=== PATIENT | female | born 1950 | race Caucasian/White ===

== ENCOUNTER 2020-03-04 19:01 | Emergency (ER) | payer MEDICARE, OTHER ==
[~2020-03-04 19:01] MED LIST: ALPRAZOLAM0.5 MG PO; CYCLOBENZAPRINE10 MG PO; DRAMAMINE LESS25 MG PO; HYDROCODON-ACE1 EAC6 PO; HYSINGLA ER20 MG PO; LEVOFLOXACIN250 MG PO; LIPITOR TAB 1010 MG PO; LOPRESSOR 25 MG25 MG PO; NABUMETONE500 MG PO; NEURONTIN600 MG PO; OMEPRAZOLE20 MG PO; PRINIVIL20 MG PO; PROZAC40 MG PO; SINGULAIR10 MG PO
[2020-03-04 20:57] LABS: HEMOGLOBIN 12.8 gm/dl (12.3-15.3); RED BLOOD COUNT 4.29 M/UL (4.00-5.10); WHITE BLOOD COUNT 9.5 K/UL (4.5-11.0)
[2020-03-04 21:15] LABS: BUN/CREATININE RATIO 17 (0-10)
[2020-03-04] MEDS ORDERED: TESSALON PERLE100 MG PO (22:51)
[2020-03-04] MEDS ORDERED: PROVENTIL HFA6.7 GM INH (22:51)
[2020-03-04] MEDS ORDERED: VIBRAMYCIN 100100 MG PO (22:51)
[2020-03-04] MEDS ORDERED: PREDNISONE 10 M10 MG PO (22:51)
== END 2020-03-04 23:24 | disposition home or self-care (01) ==
LOC: ER1 19:01
PROVIDERS: Physician Assistant
DX: J18.9 Pneumonia, unspecified organism (principal); J40 Bronchitis, not specified as acute or chronic; R09.02 Hypoxemia; I10 Essential (primary) hypertension; Z79.899 Other long term (current) drug therapy; Z88.5 Allergy status to narcotic agent; Z88.8 Allergy status to other drugs, medicaments and biological substances; Z88.0 Allergy status to penicillin; Z87.891 Personal history of nicotine dependence; Z20.822 Contact with and (suspected) exposure to COVID-19
CPT/HCPCS: 36600; 71045; 71250; 80053; 82550; 82553; 82803; 83874; 84484; 85025; 87040; 94664; 99285; J0171; J0461; U0002

== ENCOUNTER 2020-04-13 16:58 | Emergency (ER) | payer MEDICARE, OTHER ==
[~2020-04-13 16:58] MED LIST changes: +PREDNISONE 10 M10 MG PO; +PROVENTIL HFA6.7 GM INH; +TESSALON PERLE100 MG PO; +VIBRAMYCIN 100100 MG PO
[2020-04-13 18:53] LABS: HEMOGLOBIN 12.6 gm/dl (12.3-15.3); RED BLOOD COUNT 4.2 M/UL (4.00-5.10); WHITE BLOOD COUNT 10.7 K/UL (4.5-11.0)
[2020-04-13 19:16] LABS: BUN/CREATININE RATIO 14 (0-10)
[2020-04-13] MEDS ORDERED: TESSALON PERLE100 MG PO (20:22)
[2020-04-13] MEDS ORDERED: DOXYCYCLINE HY100 MG PO (20:22)
[2020-04-13] MEDS ORDERED: PREDNISONE20 MG PO (20:22)
[2020-09-11] MEDS ORDERED: ALBUTEROL INH (13:16)
== END 2020-04-13 20:50 | disposition home or self-care (01) ==
LOC: ER1 16:58
PROVIDERS: Family Medicine
DX: J20.9 Acute bronchitis, unspecified (principal); I10 Essential (primary) hypertension; Z20.822 Contact with and (suspected) exposure to COVID-19; E78.5 Hyperlipidemia, unspecified; Z88.5 Allergy status to narcotic agent; Z88.1 Allergy status to other antibiotic agents; Z88.8 Allergy status to other drugs, medicaments and biological substances
CPT/HCPCS: 0240U; 36415; 36600; 71045; 80053; 82550; 82553; 82803; 83605; 83874; 83880; 84484; 85025; 96374; 96375; 96376; 99285; J0360; J2930

== ENCOUNTER → 2020-05-18 | Outpatient (CLI) | payer MEDICARE, OTHER ==
[~2020-05-18] MED LIST changes: +ALBUTEROL INH; +AMLODIPINE BESYL5 MG PO; +CLON; +DOXYCYCLINE HY100 MG PO; +GABA; +KETAMINE; +PREDNISONE20 MG PO; +TRELEGY ELLIPT1 EAC1 INH
== END ==
LOC: HEART 5 10:03
DX: J44.9 Chronic obstructive pulmonary disease, unspecified (principal); J45.50 Severe persistent asthma, uncomplicated; Z87.891 Personal history of nicotine dependence
CPT/HCPCS: 94060; 94729; 95012

== ENCOUNTER → 2020-07-09 | Outpatient (CLI) | payer MEDICARE, OTHER | LOC: HEART 5 16:00 | DX: J45.50 Severe persistent asthma, uncomplicated (principal) | CPT/HCPCS: 94010 ==

== ENCOUNTER → 2020-09-07 | Outpatient (CLI) | payer MEDICARE, OTHER | LOC: KOH-I 14:25 | DX: M25.572 Pain in left ankle and joints of left foot (principal); M25.571 Pain in right ankle and joints of right foot; M19.071 Primary osteoarthritis, right ankle and foot | CPT/HCPCS: 73610 ==

== ENCOUNTER → 2020-09-11 | Outpatient (CLI) | payer MEDICARE, OTHER ==
[2020-09-11 12:27] LABS: HEMOGLOBIN 12.3 gm/dl (12.3-15.3); RED BLOOD COUNT 4.04 M/UL (4.00-5.10)
== END ==
LOC: OPSV2 10:49
PROVIDERS: Podiatrist Foot & Ankle Surgery
DX: Z01.818 Encounter for other preprocedural examination (principal); M19.011 Primary osteoarthritis, right shoulder
CPT/HCPCS: 36415; 80048; 85027; 93005

== ENCOUNTER → 2020-09-11 | Outpatient (CLI) | payer MEDICARE, OTHER | LOC: KOH-I 13:00 | DX: Z01.818 Encounter for other preprocedural examination (principal); Z00.00 Encounter for general adult medical examination without abnormal findings; M81.0 Age-related osteoporosis without current pathological fracture; M19.071 Primary osteoarthritis, right ankle and foot | CPT/HCPCS: 73700; 77080; 93926 ==

== ENCOUNTER → 2020-10-15 | Outpatient (CLI) | payer MEDICARE, OTHER | LOC: EXRD 08:30 | DX: Z78.0 Asymptomatic menopausal state (principal); M85.88 Other specified disorders of bone density and structure, other site | CPT/HCPCS: 77080 ==

== ENCOUNTER → 2020-11-06 | Outpatient (CLI) | payer MEDICARE, OTHER | LOC: ECHO 09:00 → NM 10:00 | DX: I20.8 Other forms of angina pectoris (principal); R94.31 Abnormal electrocardiogram [ECG] [EKG]; R06.02 Shortness of breath | CPT/HCPCS: ECHO; 78452; 93017; 93306; A9502; J2785 ==

== ENCOUNTER 2021-08-19 17:02 | Inpatient (IN) | payer MEDICARE, OTHER ==
[~2021-08-19] VITALS: Ht 152.4 cm; Wt 70.8 kg
[~2021-08-19 17:02] MED LIST changes: -LIPITOR TAB 1010 MG PO; +LIPITOR40 MG PO; -NABUMETONE500 MG PO; +NABUMETONE750 MG PO
[2021-08-19 17:56] LABS: HEMOGLOBIN 11.3 gm/dl (12.3-15.3); RED BLOOD COUNT 3.57 M/UL (4.00-5.10); WHITE BLOOD COUNT 23.2 K/UL (4.5-11.0)
[2021-08-19 18:24] LABS: BUN/CREATININE RATIO 27 (0-10)
[2021-08-20 03:27] LABS: BUN/CREATININE RATIO 26 (0-10)
[2021-08-20 03:56] LABS: HEMOGLOBIN 11.6 gm/dl (12.3-15.3); RED BLOOD COUNT 3.62 M/UL (4.00-5.10); WHITE BLOOD COUNT 21.7 K/UL (4.5-11.0)
[2021-08-20] MEDS ORDERED: HYDROCHLOROTH12.5 MG PO (12:54)
[2021-08-20] MEDS ORDERED: PAROXETINE HCL20 MG PO (12:54)
[2021-08-20] MEDS ORDERED: LORATADINE10 MG PO (12:57)
[2021-08-20] MEDS ORDERED: LISINOPRIL20 MG PO (12:59)
[2021-08-20] MEDS ORDERED: ASPIRIN EC81 MG PO (13:02)
[2021-08-21 05:28] LABS: HEMOGLOBIN 9.8 gm/dl (12.3-15.3); RED BLOOD COUNT 3.13 M/UL (4.00-5.10); WHITE BLOOD COUNT 13.2 K/UL (4.5-11.0)
[2021-08-21 05:32] LABS: BUN/CREATININE RATIO 20 (0-10)
[2021-08-22 04:48] LABS: HEMOGLOBIN 10.2 gm/dl (12.3-15.3); RED BLOOD COUNT 3.21 M/UL (4.00-5.10)
[2021-08-22 04:54] LABS: WHITE BLOOD COUNT 9.7 K/UL (4.5-11.0)
[2021-08-22 05:15] LABS: BUN/CREATININE RATIO 23 (0-10)
[2021-08-23 01:51] LABS: HEMOGLOBIN 10.5 gm/dl (12.3-15.3); RED BLOOD COUNT 3.33 M/UL (4.00-5.10); WHITE BLOOD COUNT 11.5 K/UL (4.5-11.0)
[2021-08-23 02:16] LABS: BUN/CREATININE RATIO 25 (0-10)
[2021-08-24 04:24] LABS: HEMOGLOBIN 10.6 gm/dl (12.3-15.3); RED BLOOD COUNT 3.31 M/UL (4.00-5.10); WHITE BLOOD COUNT 13.1 K/UL (4.5-11.0)
[2021-08-24 04:47] LABS: BUN/CREATININE RATIO 33 (0-10)
[2021-08-25 02:11] LABS: HEMOGLOBIN 10.5 gm/dl (12.3-15.3); RED BLOOD COUNT 3.32 M/UL (4.00-5.10)
[2021-08-25 02:36] LABS: BUN/CREATININE RATIO 34 (0-10)
[2021-08-26 09:29] LABS: BUN/CREATININE RATIO 42 (0-10)
[2021-08-26] MEDS ORDERED: ZYVOX600 MG PO (09:29)
[2021-08-26] MEDS ORDERED: ENSURE LIQUID237 ML PO (09:29)
[2021-08-26] MEDS ORDERED: THERAGRAN M TAB1 EA PO (09:29)
--- NOTE | 2021-08-26 13:04 | NUR ---
REPORT CALLED TO [facility] WITH [facility].
== END 2021-08-26 11:23 | disposition home health service (06) | DRG 871 ==
LOC: ER1 17:02 → PROG CARE 22:25 → CDU 22:25 → PROG CARE 08-20 00:13
PROVIDERS: Internal Medicine; Internal Medicine Infectious Disease; Physician Assistant; ADMIT Internal Medicine
DX: A41.9 Sepsis, unspecified organism (principal); G92.8 Other toxic encephalopathy; L03.114 Cellulitis of left upper limb; E44.0 Moderate protein-calorie malnutrition; R65.20 Severe sepsis without septic shock; R29.6 Repeated falls; J30.9 Allergic rhinitis, unspecified; M81.0 Age-related osteoporosis without current pathological fracture; W01.0XXA Fall on same level from slipping, tripping and stumbling without subsequent striking against object, initial encounter; G62.9 Polyneuropathy, unspecified; E87.6 Hypokalemia; M54.9 Dorsalgia, unspecified; I72.8 Aneurysm of other specified arteries; G89.29 Other chronic pain; R53.81 Other malaise; S00.83XA Contusion of other part of head, initial encounter; E78.5 Hyperlipidemia, unspecified; I10 Essential (primary) hypertension; F41.9 Anxiety disorder, unspecified; Z90.710 Acquired absence of both cervix and uterus; Z98.890 Other specified postprocedural states; Z88.0 Allergy status to penicillin; Z88.5 Allergy status to narcotic agent; Z88.8 Allergy status to other drugs, medicaments and biological substances; Z98.84 Bariatric surgery status; Z79.82 Long term (current) use of aspirin; Z79.899 Other long term (current) drug therapy; Z68.29 Body mass index [BMI] 29.0-29.9, adult
CPT/HCPCS: 36415; 36600; 70450; 71045; 73200; 80048; 80053; 80202; 80307; 81001; 82140; 82550; 82553; 82803; 82962; 83605; 83735; 83880; 84132; 84134; 84484; 85025; 87040; 87081; 87086; 93005; 94640; 94664; 94760; 96374; 96375; 97116-GP-CQ; 97161; 97530; 97530-GP-CQ; 99285; G0378; J1650; J3370; J3475; J7030; J7070